=== PATIENT | female | born 1985 | race Two or more races ===

== ENCOUNTER 2016-03-15 22:10 | Emergency (ER) | payer MEDICAID ==
[~2016-03-15] VITALS: Ht 154.9 cm; Wt 104.3 kg
[~2016-03-15 22:10] MED LIST: IBUP800T24 PO
[2016-03-15 22:55] LABS: Basophils # (auto) 0.1 uL; Basophils % (auto) 0.6 % (0.0-2.0); Eosinophils # (auto) 0.3 uL; Eosinophils % (auto) 2.8 % (0.0-7.0); Hematocrit 39.8 % (36.0-46.0); Hemoglobin 13.4 g/dL (12.2-16.2); Lymphocytes # (auto) 3.6 uL; Lymphocytes % (auto) 31.9 % (10.0-50.0); Mean Corpuscular Hgb Conc. 33.6 g/dL (32.0-36.0); Mean Corpuscular Volume 86.2 fL (80.0-100.0); Mean Platelet Volume 10.4 fL (7.4-10.4); Monocytes # (auto) 0.7 uL; Monocytes % (auto) 6.4 % (0.0-12.0); Neutrophils # (auto) 6.6 uL; Neutrophils % (auto) 58.3 % (37.0-80.0); Platelet Count (auto) 211 10^3/uL (140-450); White Blood Cell 11.4 10^3/uL (4.4-10.8)
[2016-03-15 23:17] LABS: Albumin 3.8 g/dL (3.4-5.0); BUN/Creatinine Ratio 15.5; Bilirubin, Total 0.3 mg/dL (0.2-1.0); Calcium 8.7 mg/dL (8.5-10.1); Potassium 3.6 mmol/L (3.5-5.1)
[2016-03-16 03:00] VITALS: BP 139/76
== END 2016-03-16 04:50 | disposition left against medical advice (07) ==
LOC: ER 22:17
DX: K08.89 Other specified disorders of teeth and supporting structures (principal); R07.9 Chest pain, unspecified; M25.512 Pain in left shoulder; Z53.21 Procedure and treatment not carried out due to patient leaving prior to being seen by health care provider
CPT/HCPCS: 36415; 70486; 80053; 82962; 84484; 84702; 85025; 85049; 93005

== ENCOUNTER 2016-03-20 15:28 | Emergency (ER) | payer SELFPAY ==
[~2016-03-20] VITALS: Ht 154.9 cm; Wt 111.1 kg
[2016-03-20 15:51] VITALS: BP 140/87
== END 2016-03-20 18:20 | disposition left against medical advice (07) ==
LOC: ER 15:31
DX: R06.02 Shortness of breath (principal); F41.9 Anxiety disorder, unspecified